=== PATIENT | female | born 1950 | race Caucasian/White ===

== ENCOUNTER → 2020-01-14 | Outpatient (CLI) | payer MEDICARE, OTHER ==
--- NOTE | 2020-01-14 15:49 | Diagnostic Imaging Report ---
INDICATION: 69-year-old acentrically postmenopausal female. COMPARISON: None available. FINDINGS: AP Spine L1-L4: [BMD (g/cm2): 0.917] [T-Score: -2.4] [Z-Score: -1.4] [BMD Previous: NA] [BMD % Change: NA] LT Hip Neck: [BMD (g/cm2): 0.723] [T-Score: -2.3] [Z-Score: -1.0] LT Hip Total: [BMD (g/cm2):0.839] [T-Score:-1.3] [Z-Score: -0.4] [BMD Previous: NA] [BMD % Change: NA] RT Hip Neck: [BMD (g/cm2):0.725] [T-Score:-2.2] [Z-Score:-1.0] RT Hip Total: [BMD (g/cm2):0.820] [T-score:-1.5] [Z-Score:-0.5] [BMD Previous:NA] [BMD % Change:NA] *Indicates significant change from prior examination based on 95% confidence level. World Health Organization criteria for BMD interpretation classify patients as Normal (T-score at or above -1.0), Osteopenic (T-score between -1.0 and -2.5) or Osteoporotic (T-score at or below -2.5). LIMITATIONS AND MODIFICATION: None. FRACTURE RISK (FRAX SCORE): The ten year probability of (%): Major Osteoporotic Fracture: [13.0] Hip Fracture: [2.9] IMPRESSION: 1. Osteopenia (Low bone mass). 2. Baseline examination. 3. See below National Osteoporosis Foundation guidelines on when to potentially initiate pharmacologic therapy. Based on the National Osteoporosis Foundation Guidelines, pharmacologic treatment should be initiated in any of the following, unless clinical conditions suggest otherwise: * Any patient with prior fragility fracture of the hip or vertebrae. A spine fracture indicates 5X risk for subsequent spine fracture and 2X risk for subsequent hip fracture. * Osteoporosis (T-score <-2.5). * Postmenopausal women and men age 50 and older with low bone mass/osteopenia (T-score between -1.0 and -2.5) by DXA and 10-year major osteoporotic fracture greater than 20% or a 10-year probability of hip fracture greater than 3%. These fracture risks are supplied above in the FRAX score, if applicable. * Clinician judgement and/or patient preferences may indicate treatment for people with 10-year fracture probabilities above or below these levels. Dictated by: Dictated on workstation # [id number]
== END ==
LOC: RAD 09:59
PROVIDERS: ATTEND Family Medicine
DX: M85.80 Other specified disorders of bone density and structure, unspecified site (principal); Z78.0 Asymptomatic menopausal state
CPT/HCPCS: 77080

== ENCOUNTER 2020-05-18 05:48 | Outpatient (RCR) | payer MEDICARE, OTHER ==
[~2020-05-18] VITALS: Ht 165.1 cm; Wt 91.4 kg
[2020-05-18] MEDS ORDERED: LISI10TA2 PO (15:20)
== END 2020-05-18 16:00 | disposition home or self-care (01) ==
LOC: PREOP 05:48
PROVIDERS: ATTEND Surgery
DX: Z01.818 Encounter for other preprocedural examination (principal)

== ENCOUNTER → 2020-05-20 | Outpatient (CLI) | payer MEDICARE, OTHER ==
[~2020-05-20] MED LIST: LISI10TA2 PO
== END ==
LOC: LAB FS 10:46
PROVIDERS: ATTEND Surgery
DX: Z12.11 Encounter for screening for malignant neoplasm of colon (principal); Z20.828 Contact with and (suspected) exposure to other viral communicable diseases
CPT/HCPCS: 87635

== ENCOUNTER 2020-05-25 08:37 | Day surgery (SDC) | payer MEDICARE, OTHER ==
[~2020-05-25] VITALS: Ht 165.1 cm; Wt 91.4 kg
[2020-05-25] VITALS (8 sets, daily range): BP systolic 113–180; BP diastolic 57–81
[2020-05-25] MEDS ORDERED: LACTATED RINGERS 1,000 ML IV ONE (08:47)
--- OUTSIDE RECORDS SUMMARY | 2020-05-25 08:47 | XMS REPORT | Continuity of Care Document ---
Author Organization Unknown Address Unknown Phone Unavailable Allergies Active Description Code Type Severity Reaction Onset Reported/Identified Relationship to Patient Clinical Status Yes No Known Drug Allergies [id number] Drug Allergy Unknown N/A 05/18/2020 Medications There is no data. Problems Date Dx Coded Attending Type Code Diagnosis Diagnosed By 10/19/1599 CLINTON HERRERA DO Ot Z01.8 18 ENCOUNTER FOR OTHER PREPROCEDURAL EXAMIN 01/14/2020 LUIS ANGEL LEYVA MD Ot Z78.0 ASYMPTOMATIC MENOPAUSAL STATE 01/14/2020 LUIS ANGEL LEYVA MD Ot Z78.0 ASYMPTOMATIC MENOPAUSAL STATE 01/14/2020 LUIS ANGEL LEYVA MD Ot Z78.0 ASYMPTOMATIC MENOPAUSAL STATE 02/04/2020 LUIS ANGEL LEYVA MD Ot M85.80 OTH DISRD OF BONE DENSITY AND STRUCTURE, 02/04/2020 LUIS ANGEL LEYVA MD Ot Z78.0 ASYMPTOMATIC MENOPAUSAL STATE 05/18/2020 LUIS ANGEL LEYVA MD Ot M85.80 OTH DISRD OF BONE DENSITY AND STRUCTURE, 05/18/2020 LUIS ANGEL LEYVA MD Ot Z78.0 ASYMPTOMATIC MENOPAUSAL STATE 05/19/2020 LUIS ANGEL LEYVA MD Ot M85.80 OTH DISRD OF BONE DENSITY AND STRUCTURE, 05/19/2020 LUIS ANGEL LEYVA MD Ot Z78.0 ASYMPTOMATIC MENOPAUSAL STATE 05/20/2020 LUIS ANGEL LEYVA MD Ot M85.80 OTH DISRD OF BONE DENSITY AND STRUCTURE, 05/20/2020 LUIS ANGEL LEYVA MD Ot Z78.0 ASYMPTOMATIC MENOPAUSAL STATE 05/21/2020 LUIS ANGEL LEYVA MD Ot M85.80 OTH DISRD OF BONE DENSITY AND STRUCTURE, 05/21/2020 LUIS ANGEL LEYVA MD Ot Z78.0 ASYMPTOMATIC MENOPAUSAL STATE Procedures There is no data. Results Test Result Range CBC - 07/02/19 09:11 WHITE BLOOD CELL COUNT 5.4 Thousand/uL 3 .8-10.8 RED BLOOD CELL COUNT 4.98 Million/uL 3.8 0-5.10 HEMOGLOBIN 14.5 g/dL 11.7-15.5 HEMATOCRIT 45.5 % 35.0-45.0 MCV 91.4 fL 80.0-100.0 MCH 29.1 pg 27.0-33.0 MCHC 31.9 g/dL 32.0-36.0 RDW 12.3 % 11.0-15.0 PLATELET COUNT 273 Thousand/uL 140-400 MPV 10.0 fL 7.5-12.5 ABSOLUTE NEUTROPHILS 3748 cells/uL 1500- 7800 ABSOLUTE LYMPHOCYTES 1118 cells/uL 850-3 900 ABSOLUTE MONOCYTES 410 cells/uL 200-950 ABSOLUTE EOSINOPHILS 92 cells/uL 15-500 ABSOLUTE BASOPHILS 32 cells/uL 0-200 NEUTROPHILS 69.4 % NRG LYMPHOCYTES 20.7 % NRG MONOCYTES 7.6 % NRG EOSINOPHILS 1.7 % NRG BASOPHILS 0.6 % NRG LIPID PANEL - 12/31/19 10:59 CHOLESTEROL, TOTAL 190 mg/dL <200 HDL CHOLESTEROL 50 mg/dL > OR = 50 TRIGLYCERIDES 136 mg/dL <150 LDL-CHOLESTEROL 115 mg/dL (calc) NRG CHOL/HDLC RATIO 3.8 (calc) <5.0 NON HDL CHOLESTEROL 140 mg/dL (calc) <13 0 CMP - 12/31/19 10:59 GLUCOSE 91 mg/dL 65-99 UREA NITROGEN (BUN) 16 mg/dL 7-25 CREATININE 0.74 mg/dL 0.60-0.93 eGFR NON-AFR. GUYANESE 82 mL/min/1.73m2 > OR = 60 eGFR 95 mL/min/1.73m2 > OR = 60 BUN/CREATININE RATIO NOT APPLICABLE (calc) 6-22 SODIUM 140 mmol/L 135-146 POTASSIUM 4.1 mmol/L 3.5-5.3 CHLORIDE 104 mmol/L 98-110 CARBON DIOXIDE 31 mmol/L 20-32 CALCIUM 9.8 mg/dL 8.6-10.4 PROTEIN, TOTAL 6.3 g/dL 6.1-8.1 ALBUMIN 4.0 g/dL 3.6-5.1 GLOBULIN 2.3 g/dL (calc) 1.9-3.7 ALBUMIN/GLOBULIN RATIO 1.7 (calc) 1.0-2. 5 BILIRUBIN, TOTAL 0.6 mg/dL 0.2-1.2 ALKALINE PHOSPHATASE 79 U/L 37-153 AST 16 U/L 10-35 ALT 17 U/L 6-29 Coronavirus SARS-CoV-2 SO 2018 - 0 10:19 Coronavirus Ab [Units/volume] in Serum Negative Negative Encounters ACCT No. Visit Date/Time Discharge Status Pt. Type Provider Facility Loc./Unit Complaint [id number] 04/21/2020 15:00:00 04/21/2020 23:59: 59 CLS Out[id number] 12/31/2019 10:30:00 Document Registration [id number] 07/02/2019 09:20:00 Document Registration [id number] 05/20/2020 10:46:00 23:59:59 CLS Outpatient CLINTON HERRERA DO [facility] LAB FS PRE PROCEDURE REQUIREME NT [id number] 05/18/2020 05:48:00 16:00:00 DIS Outpatient CLINTON HERRERA DO [facility] PREOP COLONOSCOPY [id number] 01/14/2020 09:59:00 23:59:59 CLS Outpatient LUIS ANGEL LEYVA MD [facility] RAD ASYMPTOMATIC MENOPAUSA L STATE [id number] 05/25/2020 09:30:00 P EN Preadmit CLINTON HERRERA DO [facility] ENDO +COLOGUARD
[2020-05-25] MEDS ORDERED: LACTATED RINGERS 1,000 ML IV PRN (09:15)
--- NOTE | 2020-05-25 09:56 | Progress Note-Pre Operative ---
Pre-Operative Progress Note H&P Reviewed The H&P was reviewed, patient examined and no changes noted. Time Seen by Provider: 09:53 Date H&P Reviewed: May 25, 2020 Time H&P Reviewed: 09:52 Pre-Operative Diagnosis: +colCLINTON Martinez DO May 25, 2020 09:56
[2020-05-25] MEDS ORDERED: PROPOFOL INJECTION 50 ML IV ONE ×2 (10:13→10:33)
--- NOTE | 2020-05-25 11:08 | Progress Note-Post Operative ---
Post-Operative Progess Note Surgeon (s)/Business Planning Analyst (s) Surgeon CLINTON HERRERA DO Business Planning Analyst: none Pre-Operative Diagnosis +cologuard Post-Operative Diagnosis Polyps diverticula int hem Procedure & Operative Findings Date of Procedure 05/25/20 Procedure Performed/Findings colon with snare Anesthesia Type IV sedation by PANEL COVERER Estimated Blood Loss Estimated blood loss (mL): scant Specimens/Packing Specimens Removed Desc colon polyp Cecal polyp - taken in 6 pieces CLINTON HERRERA DO May 25, 2020 11:08
--- NOTE | 2020-05-25 11:09 | Endoscopy Discharge Instruct ---
Endo Procedure/Findings Findings 1.: Polyp 2.: Diverticulosis 3.: Internal Hemorrhoids Discharge Instructions - Activity: You might feel a little sleepy until tomorrow. This is due to the medicine you received to relax you. Until tomorrow, you should: NOT drive a car, operate machinery or power tools. NOT drink any alcoholic beverages. NOT make any important decisions or sign importortant papers. Do not return to work until tomorrow, unless otherwise instructed. Resume previous activities tomorrow. Diet: Start by taking liquids. If you tolerate liquids, advance to solid food. make an appointment for one week 1.: Colonoscopy in 1 year Notify Physician - If you experience excessive bleeding, unusual abdominal pain, fever, or chest pain, contact your doctor immediately. CLINTON HERRERA DO May 25, 2020 11:09
--- NOTE | 2020-05-25 12:16 | Anesthesia-General Post-Op ---
MAC Patient Condition Mental Status/LOC: Same as Preop Cardiovascular: Satisfactory Nausea/Vomiting: Absent Respiratory: Satisfactory Pain: Controlled Complications: Absent Post Op Complications Complications None Follow Up Care/Instructions Patient Instructions None needed. Anesthesiology Discharge Order Discharge Order Patient is doing well, no complaints, stable vital signs, no apparent adverse anesthesia problems. No complications reported per nursing. SAMUEL CALERO CRNA May 25, 2020 12:16
--- NOTE | 2020-05-26 05:19 | OPERATIVE REPORT ---
DATE OF SERVICE: PREOPERATIVE DIAGNOSIS: Positive Cologuard. POSTOPERATIVE DIAGNOSES: Colon polyps, early diverticula and internal hemorrhoids. PROCEDURE: Colonoscopy with snare polypectomy. SURGEON: Darrick Joseph DO SENIOR SOFTWARE DEVELOPMENT MANAGER: None. ANESTHESIA: IV sedation by the PACKING FLOOR WORKER. SPECIMEN: One polyp from the descending colon and then one cecal polyp taken in 6 pieces. BLOOD LOSS: Scant. FLUIDS: Per anesthesia. POSTOPERATIVE CONDITION: Stable. INDICATION FOR PROCEDURE: The patient is a 69-year-old female who had a positive Cologuard and needed a workup. FINDINGS: The patient had a medium-sized polyp in the descending colon, but had a very large villous polyp in the cecum. Polyp sent for pathology. PROCEDURE NOTE: After informed consent was obtained, the patient was brought to the endoscopy suite, placed in bed in the left lateral decubitus position. She was administered IV sedation by the PACKING FLOOR WORKER who then monitored her vitals the entire time, heart rate, blood pressure and pulse ox. The scope was then inserted, pushed in. On the way in, noted a medium-sized polyp in the descending colon, took a picture and then did a snare polypectomy and then continued pushing all the way to the cecum, able to get into the cecum, took a picture of appendiceal orifice and then noted right next to the appendiceal orifice, a very large villous polyp. I elected to remove this with snare polypectomy with hot, able to take this in 4 or 5 bites got about 6 pieces of polyp out. At the end, took a picture, looked like we had got all of it out. Most of this was suctioned up and there was one large piece and we had to place a David Net in and grasped with a David Net and then slowly withdrew the scope. Withdrew the scope, insufflating to look circumferentially at the carrington, looking at the cecum, up the ascending colon to the hepatic flexure, then down the transverse colon, the splenic flexure, into the descending colon, then down into the sigmoid and finally into the rectum. In the rectal vault, retroflexed the scope and saw some internal hemorrhoids, had actually taken the scope completely out to remove the polyp, removed the David Net and then placed the scope back in. Had seen some very early signs of diverticula, but no large outpouchings. At this point, then completely removed the scope. The patient tolerated the procedure. She was recovered in the endoscopy suite. Job ID: [id number] DocumentID: [id number] Dictated Date: 05/25/2020 16:32:02 Revenue Accountant Date: 05/26/2020 05:18:36 Dictated By: DARRICK JOSEPH DO
== END 2020-05-25 11:45 | disposition home or self-care (01) ==
LOC: ENDO 08:37
PROVIDERS: ATTEND Surgery
DX: D12.4 Benign neoplasm of descending colon (principal); D12.0 Benign neoplasm of cecum; K57.90 Diverticulosis of intestine, part unspecified, without perforation or abscess without bleeding; K64.8 Other hemorrhoids; I10 Essential (primary) hypertension; Z79.899 Other long term (current) drug therapy; E66.9 Obesity, unspecified; Z68.33 Body mass index [BMI] 33.0-33.9, adult
CPT/HCPCS: 88305

== ENCOUNTER 2022-05-25 06:44 | Outpatient (CLI) | payer MEDICARE, OTHER ==
[~2022-05-25] VITALS: Ht 165 cm; Wt 80.0 kg
[~2022-05-25 06:44] MED LIST changes: -LISI10TA2 PO; +LISI10TA25 PO
[2022-05-26] MEDS ORDERED: FERR-84 PO (11:00)
[2022-05-26] MEDS ORDERED: CALC-654 PO (11:00)
== END 2022-05-26 11:02 | disposition home or self-care (01) ==
LOC: PREOP 06:44
PROVIDERS: ATTEND Surgery
DX: Z01.818 Encounter for other preprocedural examination (principal)

== ENCOUNTER 2022-06-07 07:59 | Day surgery (SDC) | payer MEDICARE, OTHER ==
[~2022-06-07] VITALS: Ht 165.1 cm; Wt 80.0 kg
[~2022-06-07 07:59] MED LIST changes: +CALC-654 PO; +FERR-84 PO
[2022-06-07] MEDS ORDERED: LACTATED RINGERS 1,000 ML IV STA (08:09)
[2022-06-07 08:10] VITALS: BP 192/92
--- NOTE | 2022-06-07 08:24 | Progress Note-Pre Operative ---
Pre-Operative Progress Note H&P Reviewed The H&P was reviewed, patient examined and no changes noted. Time Seen by Provider: 08:20 Date H&P Reviewed: Jun 07, 2022 Time H&P Reviewed: 08:20 Pre-Operative Diagnosis: Hx of high grade polyp CLINTON HERRERA DO Jun 07, 2022 08:24
[2022-06-07] MEDS ORDERED: MIDAZOLAM 2 MG/2 ML (VERSED) VIAL ONE (09:45)
[2022-06-07] MEDS ORDERED: PROPOFOL INJECTION 50 ML IV ONE (09:46)
[2022-06-07 10:15] VITALS: BP 111/53
--- NOTE | 2022-06-07 10:18 | Endoscopy Discharge Instruct ---
Endo Procedure/Findings Findings 1.: Diverticulosis 2.: Internal Hemorrhoids Discharge Instructions - Activity: You might feel a little sleepy until tomorrow. This is due to the medicine you received to relax you. Until tomorrow, you should: NOT drive a car, operate machinery or power tools. NOT drink any alcoholic beverages. NOT make any important decisions or sign importortant papers. Do not return to work until tomorrow, unless otherwise instructed. Resume previous activities tomorrow. Diet: Start by taking liquids. If you tolerate liquids, advance to solid food. 1.: Colonscopy in 5 years Notify Physician - If you experience excessive bleeding, unusual abdominal pain, fever, or chest pain, contact your doctor immediately. CLINTON HERRERA DO Jun 07, 2022 10:18
--- NOTE | 2022-06-07 10:18 | Progress Note-Post Operative ---
Post-Operative Progess Note Surgeon (s)/Vitreo Retinal Surgeon (s) Surgeon CLINTON HERRERA DO Vitreo Retinal Surgeon: LUKE Jacobs Pre-Operative Diagnosis Hx of high grade polyp Post-Operative Diagnosis Diveticula int hemorrhoids Procedure & Operative Findings Date of Procedure 06/07/22 Procedure Performed/Findings Colonoscopy PROCEDURE NOTE: After informed consent was obtained, the patient was brought to the endoscopy suite, placed in bed in left lateral decubitus position. She was administered IV sedation by the KILN PUSHER who then monitored her vitals the entire time, heart rate, blood pressure and pulse ox and the scope was inserted, pushed all the way to about 130 cm and pushed into the cecum, took a picture of appendiceal orifice and then slowly withdrew the scope insufflating to look circumferentially at the carrington starting in the cecum, up the ascending colon to the hepatic flexure, then down the transverse colon, splenic flexure, into the descending colon down in the sigmoid and then into the rectal vault and slowly pulled scope out. Took a picture of the internal hemorrhoids on the way out. Had also seen a diverticula and took a picture of it. The patient tolerated the procedure. She was recovered in endoscopy suite. 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 Anesthesia Type IV sedation by KILN PUSHER Estimated Blood Loss Estimated blood loss (mL): none Specimens/Packing Specimens Removed none CLINTON HERRERA DO Jun 07, 2022 10:18
[2022-06-07 10:20] VITALS: BP 112/54
[2022-06-07 10:25] VITALS: BP 112/56
[2022-06-07 10:40] VITALS: BP 144/74
[2022-06-07 10:50] VITALS: BP 144/74
--- NOTE | 2022-06-07 12:03 | Anesthesia-General Post-Op ---
MAC Patient Condition Mental Status/LOC: Same as Preop Cardiovascular: Satisfactory Nausea/Vomiting: Absent Respiratory: Satisfactory Pain: Controlled Complications: Absent Post Op Complications Complications None Follow Up Care/Instructions Patient Instructions None needed. Anesthesiology Discharge Order Discharge Order Patient is doing well, no complaints, stable vital signs, no apparent adverse anesthesia problems. No complications reported per nursing. BENJY ROACH CRNA Jun 07, 2022 12:02
== END 2022-06-07 10:50 | disposition home or self-care (01) ==
LOC: ENDO 07:59
PROVIDERS: ATTEND Surgery
DX: Z12.11 Encounter for screening for malignant neoplasm of colon (principal); K57.30 Diverticulosis of large intestine without perforation or abscess without bleeding; K64.8 Other hemorrhoids; Z86.010 Personal history of colon polyps